=== PATIENT | female | born 1935 | race Asian ===

== ENCOUNTER → 2018-01-18 | Outpatient (CLI) | payer MEDICARE, OTHER ==
[~2018-01-18] MED LIST: ALBU8.5H3 IH; AMLO-512 PO; [UNRECOGNIZED DRUG - OTHER] PO
== END | disposition home or self-care (01) ==
LOC: RADPV 09:41
PROVIDERS: ATTEND Internal Medicine Cardiovascular Disease
DX: N28.89 Other specified disorders of kidney and ureter (principal); I10 Essential (primary) hypertension
CPT/HCPCS: 74019

== ENCOUNTER 2018-03-22 21:46 | Inpatient (IN) | payer MEDICARE, OTHER ==
[~2018-03-22] VITALS: Ht 157.5 cm; Wt 53.6 kg
[2018-03-22 22:43] LABS: BASOPHILS % (AUTO) 0.7 % (0.0-2.0); EOSINOPHILS % (AUTO) 0.6 % (1.0-6.0); HEMATOCRIT 30.4 % (36-46); HEMOGLOBIN 10.1 g/dL (12.0-16.0); LYMPHOCYTES # (AUTO) 0.7 K/uL (1.0-4.8); LYMPHOCYTES % (AUTO) 7.4 % (22.0-44.0); MEAN CORPUSCULAR HEMOGLOBIN 26.9 pg (26.0-34.0); MEAN CORPUSCULAR HGB CONC 33.2 G/dL (31.0-37.0); MEAN CORPUSCULAR VOLUME 81 fL (80-100); MONOCYTES % (AUTO) 9.6 % (2.0-9.0); NEUTROPHILS # (AUTO) 8.2 K/uL (1.8-7.7); NEUTROPHILS % (AUTO) 81.7 % (40.0-70.0); PLATELET COUNT (AUTO) 177 K/uL (150-450); RED BLOOD CELL COUNT(AUTO) 3.75 MIL/uL (4.00-5.20); RED CELL DISTRIBUTION WIDTH 26.5 % (11.5-14.5)
[2018-03-22 22:55] LABS: PROTHROMBIN TIME 10.9 SEC (9.4-11.6)
[2018-03-22 22:57] LABS: CREATININE 1.74 mg/dL (0.60-1.30); POTASSIUM 4.3 mmol/L (3.5-5.1)
[2018-03-22 22:59] LABS: PLATELET MORPHOLOGY COMMENT NORMAL
[2018-03-22 23:07] LABS: ALBUMIN 3.1 g/dL (3.4-5.0); BILIRUBIN,TOTAL 0.7 mg/dL (0.1-1.0); TOTAL PROTEIN, SERUM 7.5 g/dL (6.4-8.2)
[2018-03-22] MEDS ORDERED: PRAV20TA4 PO (23:07)
[2018-03-22] MEDS ORDERED: ASPI81 PO (23:07)
[2018-03-22] MEDS ORDERED: ISOS30TA6 PO (23:07)
[2018-03-22] MEDS ORDERED: LOSA100T20 PO (23:07)
[2018-03-22] MEDS ORDERED: METO25 PO (23:07)
[2018-03-22] MEDS ORDERED: RANO10003 PO (23:07)
[2018-03-22] MEDS ORDERED: MELO-108 PO (23:07)
[2018-03-22] MEDS ORDERED: NITR.4 SL (23:07)
[2018-03-22] MEDS ORDERED: SODIUM CHLORIDE 0.9% 1,000 ML IV ONE ×2 (23:15→23:30)
[2018-03-22] MEDS ORDERED: ASPIRIN 81 MG CHEWABLE TABLET PO ONE (23:15)
[2018-03-22] MEDS ORDERED: ACETAMINOPHEN 325 MG TABLET PO PRN (23:30)
[2018-03-22] MEDS ORDERED: MORPHINE SULFATE 2 MG/ML SYRINGE IVP PRN (23:30)
[2018-03-22] MEDS ORDERED: MAGNESIUM HYDROXIDE SUSPENSION 30 ML UDCUP PO PRN (23:30)
[2018-03-22] MEDS ORDERED: ZOLPIDEM TARTRATE 5 MG TABLET PO PRN (23:30)
[2018-03-22] MEDS ORDERED: ONDANSETRON HCL 4 MG/2 ML VIAL IVP PRN (23:30)
[2018-03-22] MEDS ORDERED: BISACODYL 10 MG RECTAL RECTAL SUPPOSITORY PR PRN (23:30)
[2018-03-22] MEDS ORDERED: HYDROCODONE/ACETAMINOPHEN 5-325 MG TABLET PO PRN (23:30)
[2018-03-23 00:24] LABS: APPEARANCE,URINE TURBID (CLEAR); GLUCOSE, URINE (UA) NEGATIVE (NEGATIVE); KETONES,URINE 15 mg/dL (NEGATIVE); LEUKOCYTE ESTERASE ,URINE SMALL (NEGATIVE); NITRATE,URINE POSITIVE (NEGATIVE); OCCULT BLOOD,URINE MODERATE (NEGATIVE); PROTEIN,URINE SEE CONFIRM (NEGATIVE)
[2018-03-23 00:27] LABS: BILIRUBIN,URINE PRELIM. POSITIVE (NEGATIVE)
[2018-03-23 00:31] LABS: BACTERIA,URINE Moderate /HPF (None Seen)
[2018-03-23 00:33] LABS: AMORPHOUS SEDIMENT,UR Rare /LPF (None Seen); HYALINE CASTS, URINE 0-2 /LPF (None Seen); SQUAMOUS EPITHELIAL CELL,UR Moderate /LPF (None Seen)
[2018-03-23 00:34] LABS: SULFOSALICYLIC ACID,URINE 2+ (Negative)
[2018-03-23] MEDS ORDERED: CIPROFLOXACIN HCL 500 MG TABLET PO ONE (01:00)
[2018-03-23] MEDS ORDERED: ACETAMINOPHEN 325 MG TABLET PO PRN (01:00)
[2018-03-23] MEDS ORDERED: ONDANSETRON HCL 4 MG/2 ML VIAL IVP PRN (01:00)
[2018-03-23 01:10] VITALS: BP 137/73
[2018-03-23 04:15] VITALS: BP 135/78
[2018-03-23 07:15] VITALS: BP 147/76
[2018-03-23] MEDS: RANOLAZINE 500 MG SR TABLET PO SCH ×2 (08:28→20:57)
[2018-03-23] MEDS: HEPARIN SODIUM,PORCINE 5,000 UNITS/ML VIAL SQ SCH ×3 (08:28→17:00)
[2018-03-23] MEDS: METOPROLOL TARTRATE 25 MG TABLET PO SCH ×2 (08:28→20:57)
[2018-03-23] MEDS: DOCUSATE SODIUM 100 MG CAPSULE PO SCH ×2 (08:29→20:57)
[2018-03-23] MEDS: PANTOPRAZOLE SODIUM 40 MG DR TABLET PO SCH (08:29)
[2018-03-23] MEDS: ISOSORBIDE MONONITRATE 30 MG ER TABLET PO SCH (08:29)
[2018-03-23] MEDS: ASPIRIN 81 MG CHEWABLE TABLET PO SCH (08:29)
[2018-03-23 10:02] LABS: BASOPHILS % (AUTO) 0.7 % (0.0-2.0); EOSINOPHILS % (AUTO) 0.2 % (1.0-6.0); HEMATOCRIT 27.8 % (36-46); LYMPHOCYTES % (AUTO) 10.6 % (22.0-44.0); MEAN CORPUSCULAR HEMOGLOBIN 26.9 pg (26.0-34.0); MEAN CORPUSCULAR HGB CONC 32.4 G/dL (31.0-37.0); MEAN CORPUSCULAR VOLUME 83 fL (80-100); MONOCYTES # (AUTO) 0.9 K/uL (0.1-1.0); MONOCYTES % (AUTO) 9.6 % (2.0-9.0); NEUTROPHILS # (AUTO) 7.2 K/uL (1.8-7.7); NEUTROPHILS % (AUTO) 78.9 % (40.0-70.0); PLATELET COUNT (AUTO) 154 K/uL (150-450); RED BLOOD CELL COUNT(AUTO) 3.35 MIL/uL (4.00-5.20); RED CELL DISTRIBUTION WIDTH 25.9 % (11.5-14.5)
[2018-03-23 10:06] LABS: CALCIUM, TOTAL 8.4 mg/dL (8.8-10.5); CREATININE 1.73 mg/dL (0.60-1.30); POTASSIUM 4.5 mmol/L (3.5-5.1)
[2018-03-23] MEDS: CefTRIAXone SODIUM 1 GM in DEXTROSE 5%-WATER 10 ML IV SCH (10:42)
[2018-03-23 11:18] VITALS: BP 113/57
[2018-03-23] MEDS ORDERED: BARIUM SULFATE 0.1% SUSPENSION 450 ML BOTTLE ONE (12:37)
[2018-03-23 15:07] VITALS: BP 123/69
[2018-03-23 19:25] VITALS: BP 144/67
[2018-03-23] MEDS: PRAVASTATIN SODIUM 20 MG TABLET PO SCH (20:57)
[2018-03-24 00:22] VITALS: BP 142/75
[2018-03-24] MEDS: HEPARIN SODIUM,PORCINE 5,000 UNITS/ML VIAL SQ SCH ×3 (00:48→21:01)
[2018-03-24 04:42] VITALS: BP 145/77
[2018-03-24 07:29] VITALS: BP 145/79
[2018-03-24] MEDS: ASPIRIN 81 MG CHEWABLE TABLET PO SCH (09:45)
[2018-03-24] MEDS: METOPROLOL TARTRATE 25 MG TABLET PO SCH ×2 (09:45→21:01)
[2018-03-24] MEDS: PANTOPRAZOLE SODIUM 40 MG DR TABLET PO SCH (09:45)
[2018-03-24] MEDS: DOCUSATE SODIUM 100 MG CAPSULE PO SCH ×2 (09:45→20:59)
[2018-03-24] MEDS: RANOLAZINE 500 MG SR TABLET PO SCH ×2 (09:45→21:01)
[2018-03-24] MEDS: ISOSORBIDE MONONITRATE 30 MG ER TABLET PO SCH (09:47)
[2018-03-24] MEDS: CefTRIAXone SODIUM 1 GM in DEXTROSE 5%-WATER 10 ML IV SCH (09:47)
[2018-03-24] MEDS ORDERED: SODIUM BICARBONATE 650 MG TABLET PO ONE (10:30)
[2018-03-24] MEDS: SODIUM CHLORIDE 0.45% 1,000 ML IV SCH (10:41)
[2018-03-24 11:15] VITALS: BP 112/72
[2018-03-24] MEDS ORDERED: BARIUM SULFATE 0.1% SUSPENSION 450 ML BOTTLE ONE (13:33)
[2018-03-24] MEDS ORDERED: SODIUM CHLORIDE 0.9% 100 ML ONE (15:14)
[2018-03-24] MEDS ORDERED: IOVERSOL 350 MG/ML 100 ML VIAL ONE (15:14)
[2018-03-24 15:19] LABS: % IRON SATURATION 6.2 % (22-44)
[2018-03-24 15:35] VITALS: BP 157/80
[2018-03-24 17:04] LABS: CREATININE,URINE RANDOM 71.8 mg/dL (30.0-125.0)
[2018-03-24 20:21] VITALS: BP 112/75
[2018-03-24] MEDS: PRAVASTATIN SODIUM 20 MG TABLET PO SCH (21:01)
[2018-03-25] VITALS (7 sets, daily range): BP systolic 103–150; BP diastolic 64–84
[2018-03-25] MEDS: SODIUM CHLORIDE 0.45% 1,000 ML IV SCH ×2 (00:09→08:27)
[2018-03-25 06:26] LABS: CALCIUM, TOTAL 8.7 mg/dL (8.8-10.5); CREATININE 1.3 mg/dL (0.60-1.30); POTASSIUM 4.3 mmol/L (3.5-5.1)
[2018-03-25] MEDS: METOPROLOL TARTRATE 25 MG TABLET PO SCH ×2 (09:20→20:20)
[2018-03-25] MEDS: HEPARIN SODIUM,PORCINE 5,000 UNITS/ML VIAL SQ SCH ×2 (09:20→20:20)
[2018-03-25] MEDS: RANOLAZINE 500 MG SR TABLET PO SCH ×2 (09:20→20:19)
[2018-03-25] MEDS: ASPIRIN 81 MG CHEWABLE TABLET PO SCH (09:20)
[2018-03-25] MEDS: CefTRIAXone SODIUM 1 GM in DEXTROSE 5%-WATER 10 ML IV SCH (09:20)
[2018-03-25] MEDS: DOCUSATE SODIUM 100 MG CAPSULE PO SCH ×2 (09:20→20:19)
[2018-03-25] MEDS: PANTOPRAZOLE SODIUM 40 MG DR TABLET PO SCH (09:20)
[2018-03-25] MEDS: ISOSORBIDE MONONITRATE 30 MG ER TABLET PO SCH (09:20)
[2018-03-25] MEDS ORDERED: LOSA50TA25 PO (14:54)
[2018-03-25] MEDS: IRON SUCROSE COMPLEX 100 MG in SODIUM CHLORIDE 0.9% 100 ML IV SCH (15:53)
[2018-03-25 18:09] LABS: ALPHA-1 (IFE & PEP) 0.4 g/dL (0.0-0.4); GAMMA GLOBULINS (IFE & ELP) 1.2 g/dL (0.4-1.8); IGM (IMMUNOFIXATION) 87 mg/dL (26-217)
[2018-03-25] MEDS: PRAVASTATIN SODIUM 20 MG TABLET PO SCH (20:20)
[2018-03-26 03:22] VITALS: BP 138/69
[2018-03-26 07:05] LABS: ALBUMIN 2.6 g/dL (3.4-5.0); BILIRUBIN,TOTAL 0.3 mg/dL (0.1-1.0); CALCIUM, TOTAL 9.1 mg/dL (8.8-10.5); CREATININE 1.31 mg/dL (0.60-1.30); POTASSIUM 4.6 mmol/L (3.5-5.1); TOTAL PROTEIN, SERUM 6.9 g/dL (6.4-8.2)
[2018-03-26 07:16] VITALS: BP 150/77
[2018-03-26] MEDS: RANOLAZINE 500 MG SR TABLET PO SCH ×2 (08:16→20:27)
[2018-03-26] MEDS: METOPROLOL TARTRATE 25 MG TABLET PO SCH ×2 (08:16→20:27)
[2018-03-26] MEDS: PANTOPRAZOLE SODIUM 40 MG DR TABLET PO SCH (08:16)
[2018-03-26] MEDS: ISOSORBIDE MONONITRATE 30 MG ER TABLET PO SCH (08:17)
[2018-03-26] MEDS: ASPIRIN 81 MG CHEWABLE TABLET PO SCH (08:17)
[2018-03-26] MEDS: HEPARIN SODIUM,PORCINE 5,000 UNITS/ML VIAL SQ SCH ×2 (08:19→20:28)
[2018-03-26] MEDS: DOCUSATE SODIUM 100 MG CAPSULE PO SCH ×2 (08:19→20:27)
[2018-03-26 11:14] VITALS: BP 116/74
[2018-03-26] MEDS: DEXAMETHASONE SOD PHOS 4 MG/ML VIAL IVP SCH ×2 (11:30→20:28)
[2018-03-26] MEDS: CefTRIAXone SODIUM 1 GM in DEXTROSE 5%-WATER 10 ML IV SCH (11:31)
[2018-03-26 15:24] VITALS: BP 131/78
[2018-03-26] MEDS: IRON SUCROSE COMPLEX 100 MG in SODIUM CHLORIDE 0.9% 100 ML IV SCH (16:17)
[2018-03-26 19:32] VITALS: BP 136/78
[2018-03-26] MEDS: PRAVASTATIN SODIUM 20 MG TABLET PO SCH (20:27)
[2018-03-26 23:30] VITALS: BP 130/75
[2018-03-27 04:33] VITALS: BP 132/85
[2018-03-27 08:05] VITALS: BP 151/77
[2018-03-27] MEDS: HEPARIN SODIUM,PORCINE 5,000 UNITS/ML VIAL SQ SCH (08:14)
[2018-03-27] MEDS: DEXAMETHASONE SOD PHOS 4 MG/ML VIAL IVP SCH (08:15)
[2018-03-27] MEDS: ASPIRIN 81 MG CHEWABLE TABLET PO SCH (08:15)
[2018-03-27] MEDS: PANTOPRAZOLE SODIUM 40 MG DR TABLET PO SCH (08:15)
[2018-03-27] MEDS: METOPROLOL TARTRATE 25 MG TABLET PO SCH (08:15)
[2018-03-27] MEDS: DOCUSATE SODIUM 100 MG CAPSULE PO SCH (08:16)
[2018-03-27] MEDS: ISOSORBIDE MONONITRATE 30 MG ER TABLET PO SCH (08:16)
[2018-03-27] MEDS: RANOLAZINE 500 MG SR TABLET PO SCH (08:16)
[2018-03-27 08:52] LABS: CALCIUM, TOTAL 9.2 mg/dL (8.8-10.5); CREATININE 1.24 mg/dL (0.60-1.30); POTASSIUM 4.3 mmol/L (3.5-5.1)
[2018-03-27 09:32] LABS: % IRON SATURATION 44.7 % (22-44)
[2018-03-27 11:22] VITALS: BP 123/75
[2018-03-27] MEDS ORDERED: DEXA0.5T2 PO ×2 (16:30)
[2018-03-27] MEDS ORDERED: DSS100 PO (16:33)
[2018-03-27] MEDS ORDERED: HEPA500041 SQ (16:34)
[2018-03-27] MEDS ORDERED: PANT40TA25 PO (16:36)
[2018-03-27] MEDS ORDERED: METO25 PO (16:36)
[2018-03-29 11:08] LABS: ALBUMIN URINE (ELP) 65.3 %
== END 2018-03-27 17:00 | DRG 65 ==
LOC: EMS 21:48 → 5S 23:30
PROVIDERS: ADMIT Internal Medicine; ATTEND Internal Medicine
DX: I63.9 Cerebral infarction, unspecified (principal); N17.9 Acute kidney failure, unspecified; N39.0 Urinary tract infection, site not specified; Q44.6 Cystic disease of liver; G93.89 Other specified disorders of brain; I12.9 Hypertensive chronic kidney disease with stage 1 through stage 4 chronic kidney disease, or unspecified chronic kidney disease; E86.0 Dehydration; N18.3 Chronic kidney disease, stage 3 (moderate); E78.00 Pure hypercholesterolemia, unspecified; I25.9 Chronic ischemic heart disease, unspecified; E78.5 Hyperlipidemia, unspecified; R80.9 Proteinuria, unspecified; K21.9 Gastro-esophageal reflux disease without esophagitis; D63.8 Anemia in other chronic diseases classified elsewhere; N63.20 Unspecified lump in the left breast, unspecified quadrant; D50.9 Iron deficiency anemia, unspecified; R19.00 Intra-abdominal and pelvic swelling, mass and lump, unspecified site; R26.2 Difficulty in walking, not elsewhere classified; R74.8 Abnormal levels of other serum enzymes; Z82.49 Family history of ischemic heart disease and other diseases of the circulatory system
CPT/HCPCS: 51702; 70450; 70551; 71260; 72193; 74160; 76770; 82570; 82784; 83540; 83550; 83735; 84155; 84156; 84165; 84166; 84300; 86334; 87086; 93005; 93306; 96360; 97116; 97162; 97530; 99285; J0696; J1100; J1644; J1756; J7030; J7050; J7060